=== PATIENT | male | born 1950 | race Caucasian/White ===

== ENCOUNTER 2017-04-05 10:19 | Outpatient (RCR) | payer OTHER, SELFPAY ==
[2017-03-09 11:03] LABS: Absolute Lymphocyte Count 0.61 X10^3/ul (0.83-4.51); Absolute Neutrophil Count 3.8 X10^3/uL (2.0-7.7); Basophil# 0.02 X10^3/uL; Basophil% 0.4 % (0-1); Eosinophil# 0.16 X10^3/uL; Eosinophils% 3.1 % (0-5); Hematocrit 35.3 % (40-54); Hemoglobin 12.1 g/dl (13.0-16.5); Lymphocyte # 0.61 X10^3/ul (4.0); Mean Corp Hgb Conc 34.3 g/gl (32-36); Mean Corpuscular Hgb 30.7 pg (27.0-32.0); Mean Corpuscular Volume 89.6 fL (80-94); Mean Platelet Vol. 10.6 fl (6.2-12.0); Monocyte# 0.45 X10^3/uL; Monocyte% 8.8 % (0-10); Neutrophil # 3.83 X10^3/uL (2.7-7.7); Neutrophil % 75.1 % (47-70); Platelet Count 148 K/mm3 (150-450); RBC Distribution Width CV 15.3 % (11.6-14.6); RBC Distribution Width SD 46.2 fl (35.1-43.9); Red Blood Count 3.94 M/mm3 (4.6-6.2); White Blood Count 5.1 K/mm3 (4.4-11.0)
[2017-03-09 11:11] LABS: POSITIVE COUNT NO; POSITIVE DIFFERENTIAL NO; POSITIVE MORPHOLOGY NO
[2017-03-09 11:35] LABS: ALB/GLOB Ratio 1.2 RATIO (0.9-2.4); AST(SGOT) 15 U/L (15-37); Alanine Aminotransfer ALT/SGPT 25 U/L (12-78); Albumin, Serum 3.7 g/dL (3.4-5.0); Alkaline Phosphatase 69 U/L (45-117); Anion Gap 8 (5-15); BUN 18 mg/dL (7-18); BUN/Creat Ratio 21.5 RATIO (10-20); Calcium,Total 8.5 mg/dL (8.5-10.1); Chloride 102 mmol/L (98-107); Creatinine, Serum 0.84 mg/dL (0.70-1.30); EST Glomerular Filtration Rate 98 mL/min (>60); Est Glom Filt Rate - Afr Amer 119 mL/min (>60); Globulin 3.2 g/dL (2.2-4.2); Glucose 109 mg/dL (70-110); Potassium 3.8 mmol/L (3.5-5.1); Protein, Total 6.9 g/dL (6.4-8.2); Sodium Level 140 mmol/L (136-145)
[2017-03-15 10:22] LABS: Absolute Lymphocyte Count 0.51 X10^3/ul (0.83-4.51); Absolute Neutrophil Count 4.5 X10^3/uL (2.0-7.7); Basophil# 0.02 X10^3/uL; Basophil% 0.4 % (0-1); Eosinophil# 0.16 X10^3/uL; Eosinophils% 2.9 % (0-5); Hematocrit 35.9 % (40-54); Hemoglobin 12.6 g/dl (13.0-16.5); Lymphocyte # 0.51 X10^3/ul (4.0); Lymphocyte % 9.1 % (19-41); Mean Corp Hgb Conc 35.1 g/gl (32-36); Mean Corpuscular Hgb 31.3 pg (27.0-32.0); Mean Corpuscular Volume 89.3 fL (80-94); Mean Platelet Vol. 10.4 fl (6.2-12.0); Monocyte# 0.44 X10^3/uL; Monocyte% 7.9 % (0-10); Neutrophil # 4.46 X10^3/uL (2.7-7.7); Neutrophil % 79.5 % (47-70); Platelet Count 142 K/mm3 (150-450); RBC Distribution Width CV 15.7 % (11.6-14.6); RBC Distribution Width SD 47.5 fl (35.1-43.9); Red Blood Count 4.02 M/mm3 (4.6-6.2); White Blood Count 5.6 K/mm3 (4.4-11.0)
[2017-03-15 10:24] LABS: Differential Indicated SCAN CRITERIA MET; POSITIVE COUNT NO; POSITIVE DIFFERENTIAL YES; POSITIVE MORPHOLOGY NO
[2017-03-15 10:57] LABS: ALB/GLOB Ratio 1.2 RATIO (0.9-2.4); AST(SGOT) 16 U/L (15-37); Alanine Aminotransfer ALT/SGPT 25 U/L (12-78); Albumin, Serum 3.7 g/dL (3.4-5.0); Alkaline Phosphatase 70 U/L (45-117); Anion Gap 6 (5-15); BUN 18 mg/dL (7-18); BUN/Creat Ratio 20.2 RATIO (10-20); Calcium,Total 8.8 mg/dL (8.5-10.1); Chloride 106 mmol/L (98-107); Creatinine, Serum 0.89 mg/dL (0.70-1.30); EST Glomerular Filtration Rate 91 mL/min (>60); Est Glom Filt Rate - Afr Amer 110 mL/min (>60); Globulin 3.2 g/dL (2.2-4.2); Glucose 105 mg/dL (70-110); Protein, Total 6.9 g/dL (6.4-8.2); Sodium Level 141 mmol/L (136-145)
[2017-03-22 11:23] LABS: Absolute Lymphocyte Count 0.34 X10^3/ul (0.83-4.51); Absolute Neutrophil Count 3.9 X10^3/uL (2.0-7.7); Basophil# 0.01 X10^3/uL; Basophil% 0.2 % (0-1); Differential Indicated SCAN CRITERIA MET; Eosinophil# 0.15 X10^3/uL; Hematocrit 35.9 % (40-54); Hemoglobin 12.2 g/dl (13.0-16.5); Lymphocyte # 0.34 X10^3/ul (4.0); Lymphocyte % 6.8 % (19-41); Mean Corpuscular Hgb 30.5 pg (27.0-32.0); Mean Corpuscular Volume 89.8 fL (80-94); Monocyte# 0.59 X10^3/uL; Monocyte% 11.9 % (0-10); Neutrophil # 3.87 X10^3/uL (2.7-7.7); Neutrophil % 77.9 % (47-70); POSITIVE COUNT NO; POSITIVE DIFFERENTIAL YES; POSITIVE MORPHOLOGY NO; Platelet Count 134 K/mm3 (150-450); RBC Distribution Width CV 16.6 % (11.6-14.6); RBC Distribution Width SD 50.1 fl (35.1-43.9)
[2017-03-22 11:57] LABS: ALB/GLOB Ratio 1.2 RATIO (0.9-2.4); AST(SGOT) 18 U/L (15-37); Alanine Aminotransfer ALT/SGPT 28 U/L (12-78); Albumin, Serum 3.8 g/dL (3.4-5.0); Alkaline Phosphatase 69 U/L (45-117); Anion Gap 6 (5-15); BUN 17 mg/dL (7-18); BUN/Creat Ratio 20.3 RATIO (10-20); Calcium,Total 8.7 mg/dL (8.5-10.1); Chloride 106 mmol/L (98-107); Creatinine, Serum 0.84 mg/dL (0.70-1.30); EST Glomerular Filtration Rate 98 mL/min (>60); Est Glom Filt Rate - Afr Amer 118 mL/min (>60); Globulin 3.2 g/dL (2.2-4.2); Glucose 97 mg/dL (70-110); Potassium 3.8 mmol/L (3.5-5.1); Sodium Level 141 mmol/L (136-145)
[2017-03-29 11:06] LABS: Absolute Lymphocyte Count 0.32 X10^3/ul (0.83-4.51); Absolute Neutrophil Count 3.6 X10^3/uL (2.0-7.7); Basophil# 0.01 X10^3/uL; Basophil% 0.2 % (0-1); Eosinophil# 0.22 X10^3/uL; Eosinophils% 4.6 % (0-5); Hematocrit 34.9 % (40-54); Hemoglobin 12.3 g/dl (13.0-16.5); Lymphocyte # 0.32 X10^3/ul (4.0); Lymphocyte % 6.8 % (19-41); Mean Corp Hgb Conc 35.2 g/gl (32-36); Mean Corpuscular Hgb 31.7 pg (27.0-32.0); Mean Corpuscular Volume 89.9 fL (80-94); Mean Platelet Vol. 10.1 fl (6.2-12.0); Monocyte# 0.57 X10^3/uL; Platelet Count 155 K/mm3 (150-450); RBC Distribution Width CV 17.4 % (11.6-14.6); RBC Distribution Width SD 52.8 fl (35.1-43.9); Red Blood Count 3.88 M/mm3 (4.6-6.2); White Blood Count 4.7 K/mm3 (4.4-11.0)
[2017-03-29 11:07] LABS: Differential Indicated SCAN CRITERIA MET; POSITIVE COUNT NO; POSITIVE DIFFERENTIAL YES; POSITIVE MORPHOLOGY NO
[2017-03-29 11:16] LABS: Differential Comment SCANNED
[2017-03-29 11:37] LABS: ALB/GLOB Ratio 1.3 RATIO (0.9-2.4); AST(SGOT) 16 U/L (15-37); Alanine Aminotransfer ALT/SGPT 28 U/L (12-78); Albumin, Serum 3.8 g/dL (3.4-5.0); Alkaline Phosphatase 66 U/L (45-117); Anion Gap 7 (5-15); BUN 14 mg/dL (7-18); BUN/Creat Ratio 15.3 RATIO (10-20); Calcium,Total 8.6 mg/dL (8.5-10.1); Chloride 103 mmol/L (98-107); Creatinine, Serum 0.92 mg/dL (0.70-1.30); EST Glomerular Filtration Rate 88 mL/min (>60); Est Glom Filt Rate - Afr Amer 107 mL/min (>60); Glucose 93 mg/dL (70-110); Protein, Total 6.8 g/dL (6.4-8.2); Sodium Level 140 mmol/L (136-145)
[2017-04-05 13:04] LABS: Absolute Lymphocyte Count 0.35 X10^3/ul (0.83-4.51); Absolute Neutrophil Count 4.1 X10^3/uL (2.0-7.7); Basophil# 0.02 X10^3/uL; Basophil% 0.4 % (0-1); Eosinophil# 0.19 X10^3/uL; Eosinophils% 3.6 % (0-5); Hematocrit 34.8 % (40-54); Hemoglobin 12.2 g/dl (13.0-16.5); Lymphocyte # 0.35 X10^3/ul (4.0); Lymphocyte % 6.7 % (19-41); Mean Corp Hgb Conc 35.1 g/gl (32-36); Mean Corpuscular Hgb 31.9 pg (27.0-32.0); Mean Corpuscular Volume 91.1 fL (80-94); Mean Platelet Vol. 10.9 fl (6.2-12.0); Monocyte# 0.54 X10^3/uL; Monocyte% 10.3 % (0-10); Neutrophil # 4.14 X10^3/uL (2.7-7.7); Neutrophil % 78.8 % (47-70); Platelet Count 160 K/mm3 (150-450); RBC Distribution Width CV 18.3 % (11.6-14.6); RBC Distribution Width SD 56.4 fl (35.1-43.9); Red Blood Count 3.82 M/mm3 (4.6-6.2); White Blood Count 5.3 K/mm3 (4.4-11.0)
[2017-04-05 13:06] LABS: Differential Indicated SCAN CRITERIA MET; POSITIVE COUNT NO; POSITIVE DIFFERENTIAL YES; POSITIVE MORPHOLOGY NO
[2017-04-05 13:28] LABS: ALB/GLOB Ratio 1.3 RATIO (0.9-2.4); AST(SGOT) 17 U/L (15-37); Alanine Aminotransfer ALT/SGPT 28 U/L (16-61); Albumin, Serum 3.7 g/dL (3.2-5.0); Alkaline Phosphatase 62 U/L (45-117); Anion Gap 6 (5-15); BUN 17 mg/dL (7-18); BUN/Creat Ratio 19.9 RATIO (10-20); Calcium,Total 8.6 mg/dL (8.5-10.1); Chloride 104 mmol/L (98-107); Creatinine, Serum 0.86 mg/dL (0.70-1.30); EST Glomerular Filtration Rate 96 mL/min (>60); Est Glom Filt Rate - Afr Amer 116 mL/min (>60); Globulin 2.9 g/dL (2.2-4.2); Glucose 110 mg/dL (70-110); Potassium 3.5 mmol/L (3.5-5.1); Protein, Total 6.6 g/dL (6.4-8.2); Sodium Level 140 mmol/L (136-145)
== END 2017-04-05 10:20 | disposition home or self-care (01) ==
LOC: LAB 10:19
PROVIDERS: Family Provider Family Medicine; PCP Family Medicine
DX: C20 Malignant neoplasm of rectum (principal)
CPT/HCPCS: 36415; 80053; 85025

== ENCOUNTER 2017-05-04 12:40 | Outpatient (RCR) | payer OTHER, SELFPAY ==
[2017-04-12 12:24] LABS: Absolute Lymphocyte Count 0.69 X10^3/ul (0.83-4.51); Absolute Neutrophil Count 3.8 X10^3/uL (2.0-7.7); Basophil# 0.01 X10^3/uL; Basophil% 0.2 % (0-1); Eosinophil# 0.14 X10^3/uL; Eosinophils% 2.9 % (0-5); Hematocrit 36.3 % (40-54); Hemoglobin 12.5 g/dl (13.0-16.5); Lymphocyte # 0.69 X10^3/ul (4.0); Lymphocyte % 14.1 % (19-41); Mean Corp Hgb Conc 34.4 g/gl (32-36); Mean Corpuscular Hgb 31.7 pg (27.0-32.0); Mean Corpuscular Volume 92.1 fL (80-94); Mean Platelet Vol. 10.2 fl (6.2-12.0); Monocyte# 0.28 X10^3/uL; Monocyte% 5.7 % (0-10); Neutrophil # 3.76 X10^3/uL (2.7-7.7); Neutrophil % 76.9 % (47-70); Platelet Count 146 K/mm3 (150-450); RBC Distribution Width CV 19.5 % (11.6-14.6); RBC Distribution Width SD 62.9 fl (35.1-43.9); Red Blood Count 3.94 M/mm3 (4.6-6.2); White Blood Count 4.9 K/mm3 (4.4-11.0)
[2017-04-12 12:31] LABS: POSITIVE COUNT NO; POSITIVE DIFFERENTIAL NO; POSITIVE MORPHOLOGY NO
[2017-04-12 13:00] LABS: ALB/GLOB Ratio 1.3 RATIO (0.9-2.4); AST(SGOT) 17 U/L (15-37); Alanine Aminotransfer ALT/SGPT 27 U/L (16-61); Albumin, Serum 3.8 g/dL (3.2-5.0); Alkaline Phosphatase 67 U/L (45-117); Anion Gap 6 (5-15); BUN 13 mg/dL (7-18); BUN/Creat Ratio 14.4 RATIO (10-20); Calcium,Total 8.9 mg/dL (8.5-10.1); Chloride 106 mmol/L (98-107); EST Glomerular Filtration Rate 90 mL/min (>60); Est Glom Filt Rate - Afr Amer 109 mL/min (>60); Glucose 104 mg/dL (74-106); Potassium 3.7 mmol/L (3.5-5.1); Protein, Total 6.8 g/dL (6.4-8.2); Sodium Level 142 mmol/L (136-145)
[2017-04-26 15:47] LABS: ALB/GLOB Ratio 1.2 RATIO (0.9-2.4); AST(SGOT) 20 U/L (15-37); Alanine Aminotransfer ALT/SGPT 33 U/L (16-61); Albumin, Serum 3.7 g/dL (3.2-5.0); Alkaline Phosphatase 65 U/L (45-117); Anion Gap 7 (5-15); BUN 18 mg/dL (7-18); BUN/Creat Ratio 20.6 RATIO (10-20); Calcium,Total 8.3 mg/dL (8.5-10.1); Chloride 105 mmol/L (98-107); Creatinine, Serum 0.88 mg/dL (0.70-1.30); EST Glomerular Filtration Rate 93 mL/min (>60); Est Glom Filt Rate - Afr Amer 113 mL/min (>60); Glucose 115 mg/dL (74-106); Potassium 3.7 mmol/L (3.5-5.1); Protein, Total 6.7 g/dL (6.4-8.2); Sodium Level 140 mmol/L (136-145)
[2017-04-26 15:52] LABS: Absolute Lymphocyte Count 0.54 X10^3/ul (0.83-4.51); Absolute Neutrophil Count 4.1 X10^3/uL (2.0-7.7); Basophil# 0.01 X10^3/uL; Basophil% 0.2 % (0-1); Eosinophil# 0.18 X10^3/uL; Eosinophils% 3.2 % (0-5); Hematocrit 35.7 % (40-54); Hemoglobin 12.1 g/dl (13.0-16.5); Lymphocyte # 0.54 X10^3/ul (4.0); Lymphocyte % 9.7 % (19-41); Mean Corp Hgb Conc 33.9 g/gl (32-36); Mean Corpuscular Hgb 31.5 pg (27.0-32.0); Mean Platelet Vol. 10.5 fl (6.2-12.0); Monocyte% 12.6 % (0-10); Neutrophil # 4.13 X10^3/uL (2.7-7.7); Neutrophil % 74.1 % (47-70); Platelet Count 140 K/mm3 (150-450); RBC Distribution Width CV 17.7 % (11.6-14.6); RBC Distribution Width SD 60.2 fl (35.1-43.9); Red Blood Count 3.84 M/mm3 (4.6-6.2); White Blood Count 5.6 K/mm3 (4.4-11.0)
[2017-04-26 15:56] LABS: Differential Indicated SCAN CRITERIA MET; POSITIVE COUNT NO; POSITIVE DIFFERENTIAL YES; POSITIVE MORPHOLOGY NO
[2017-04-26 16:19] LABS: Differential Comment SCANNED
[2017-05-04 15:15] LABS: Absolute Lymphocyte Count 0.72 X10^3/ul (0.83-4.51); Absolute Neutrophil Count 3.6 X10^3/uL (2.0-7.7); Basophil# 0.01 X10^3/uL; Basophil% 0.2 % (0-1); Eosinophil# 0.17 X10^3/uL; Eosinophils% 3.5 % (0-5); Hematocrit 36.6 % (40-54); Hemoglobin 12.4 g/dl (13.0-16.5); Lymphocyte # 0.72 X10^3/ul (4.0); Lymphocyte % 14.6 % (19-41); Mean Corp Hgb Conc 33.9 g/gl (32-36); Mean Corpuscular Hgb 31.7 pg (27.0-32.0); Mean Corpuscular Volume 93.6 fL (80-94); Mean Platelet Vol. 10.8 fl (6.2-12.0); Monocyte% 8.1 % (0-10); Neutrophil # 3.61 X10^3/uL (2.7-7.7); Neutrophil % 73.4 % (47-70); Platelet Count 176 K/mm3 (150-450); RBC Distribution Width CV 16.8 % (11.6-14.6); RBC Distribution Width SD 57.9 fl (35.1-43.9); Red Blood Count 3.91 M/mm3 (4.6-6.2); White Blood Count 4.9 K/mm3 (4.4-11.0)
[2017-05-04 15:20] LABS: POSITIVE COUNT NO; POSITIVE DIFFERENTIAL NO; POSITIVE MORPHOLOGY NO
[2017-05-04 15:38] LABS: ALB/GLOB Ratio 1.2 RATIO (0.9-2.4); AST(SGOT) 20 U/L (15-37); Alanine Aminotransfer ALT/SGPT 29 U/L (16-61); Albumin, Serum 3.9 g/dL (3.2-5.0); Alkaline Phosphatase 69 U/L (45-117); Anion Gap 8 (5-15); BUN 12 mg/dL (7-18); BUN/Creat Ratio 14.9 RATIO (10-20); Calcium,Total 8.7 mg/dL (8.5-10.1); Chloride 104 mmol/L (98-107); Creatinine, Serum 0.81 mg/dL (0.70-1.30); EST Glomerular Filtration Rate 102 mL/min (>60); Est Glom Filt Rate - Afr Amer 124 mL/min (>60); Globulin 3.2 g/dL (2.2-4.2); Glucose 95 mg/dL (74-106); Potassium 3.5 mmol/L (3.5-5.1); Protein, Total 7.1 g/dL (6.4-8.2); Sodium Level 142 mmol/L (136-145)
== END 2017-05-04 13:00 ==
LOC: LAB 12:40
PROVIDERS: Family Provider Family Medicine; PCP Family Medicine
DX: C20 Malignant neoplasm of rectum (principal)
CPT/HCPCS: 36415; 80053; 85025

== ENCOUNTER 2017-05-24 14:26 | Outpatient (RCR) | payer OTHER, SELFPAY ==
[2017-05-24 15:31] LABS: Absolute Lymphocyte Count 0.79 X10^3/ul (0.83-4.51); Absolute Neutrophil Count 4.9 X10^3/uL (2.0-7.7); Basophil# 0.02 X10^3/uL; Basophil% 0.3 % (0-1); Eosinophil# 0.14 X10^3/uL; Eosinophils% 2.2 % (0-5); Hematocrit 37.4 % (40-54); Hemoglobin 12.9 g/dl (13.0-16.5); Lymphocyte # 0.79 X10^3/ul (4.0); Lymphocyte % 12.3 % (19-41); Mean Corp Hgb Conc 34.5 g/gl (32-36); Mean Corpuscular Hgb 32.3 pg (27.0-32.0); Mean Corpuscular Volume 93.5 fL (80-94); Mean Platelet Vol. 11.2 fl (6.2-12.0); Monocyte# 0.59 X10^3/uL; Monocyte% 9.2 % (0-10); Neutrophil # 4.87 X10^3/uL (2.7-7.7); Neutrophil % 75.7 % (47-70); Platelet Count 163 K/mm3 (150-450); RBC Distribution Width CV 14.2 % (11.6-14.6); RBC Distribution Width SD 47.2 fl (35.1-43.9); White Blood Count 6.4 K/mm3 (4.4-11.0)
[2017-05-24 15:34] LABS: POSITIVE COUNT NO; POSITIVE DIFFERENTIAL NO; POSITIVE MORPHOLOGY NO
[2017-05-24 16:16] LABS: BUN 15 mg/dL (7-18); Creatinine, Serum 0.82 mg/dL (0.70-1.30); EST Glomerular Filtration Rate 101 mL/min (>60); Glucose 82 mg/dL (74-106)
[2017-05-24 16:17] LABS: ALB/GLOB Ratio 1.3 RATIO (0.9-2.4); AST(SGOT) 17 U/L (15-37); Alanine Aminotransfer ALT/SGPT 29 U/L (16-61); Albumin, Serum 4.1 g/dL (3.2-5.0); Alkaline Phosphatase 69 U/L (45-117); Anion Gap 7 (5-15); BUN/Creat Ratio 18.4 RATIO (10-20); Calcium,Total 8.4 mg/dL (8.5-10.1); Chloride 107 mmol/L (98-107); Est Glom Filt Rate - Afr Amer 122 mL/min (>60); Globulin 3.2 g/dL (2.2-4.2); Potassium 3.8 mmol/L (3.5-5.1); Protein, Total 7.3 g/dL (6.4-8.2); Sodium Level 143 mmol/L (136-145)
== END 2017-05-24 15:00 | disposition home or self-care (01) ==
LOC: LAB 14:26
PROVIDERS: Family Provider Family Medicine; PCP Family Medicine
DX: C20 Malignant neoplasm of rectum (principal)
CPT/HCPCS: 36415; 80053; 85025

== ENCOUNTER → 2019-09-26 | Outpatient (CLI) | payer OTHER, SELFPAY ==
[2019-06-27 14:59] VITALS: BMI 23.6
[2019-09-26 07:24] LABS: Absolute Lymphocyte Count 1.08 X10^3/uL (0.83-4.51); Absolute Neutrophil Count 2.9 X10^3/uL (2.0-7.7); Basophil# 0.02 X10^3/uL; Basophil% 0.4 % (0-1); Eosinophil# 0.23 X10^3/uL; Eosinophils% 4.9 % (0-5); Hemoglobin 13.1 g/dL (13.0-16.5); Lymphocyte # 1.08 X10^3/ul (4.0); Lymphocyte % 22.9 % (19-41); Mean Corp Hgb Conc 34.5 g/dL (32-36); Mean Corpuscular Hgb 31.3 pg (27.0-32.0); Mean Corpuscular Volume 90.9 fL (80-94); Monocyte# 0.51 X10^3/uL; Monocyte% 10.8 % (0-10); NRBC Flagged by Analyzer 0 % (0-5); Neutrophil # 2.87 X10^3/uL (2.7-7.7); Neutrophil % 60.8 % (47-70); Platelet Count 153 K/mm3 (150-450); RBC Distribution Width CV 13.4 % (11.6-14.6); RBC Distribution Width SD 44.5 fl (35.1-43.9); Red Blood Count 4.18 M/mm3 (4.6-6.2); White Blood Count 4.7 K/mm3 (4.4-11.0)
[2019-09-26 07:48] LABS: ALB/GLOB Ratio 1.4 RATIO (0.9-2.4); AST(SGOT) 18 U/L (15-37); Alanine Aminotransfer ALT/SGPT 24 U/L (16-61); Albumin, Serum 4.2 g/dL (3.2-5.0); Alkaline Phosphatase 66 U/L (45-117); Anion Gap 4 (5-15); BUN 17 mg/dL (7-18); BUN/Creat Ratio 18.6 RATIO (10-20); Calcium,Total 8.5 mg/dL (8.5-10.1); Chloride 104 mmol/L (98-107); Creatinine, Serum 0.92 mg/dL (0.70-1.30); EST Glomerular Filtration Rate 88 mL/min (>60); Est Glom Filt Rate - Afr Amer 106 mL/min (>60); Globulin 2.9 g/dL (2.2-4.2); Glucose 96 mg/dL (74-106); Potassium 3.6 mmol/L (3.5-5.1); Protein, Total 7.1 g/dL (6.4-8.2); Sodium Level 138 mmol/L (136-145)
[2019-09-27 15:49] LABS: Carcinoembryonic Antigen 1.8 ng/mL (0.0-4.7)
== END | disposition home or self-care (01) ==
LOC: LAB 06:36
PROVIDERS: PCP Family Medicine
DX: C20 Malignant neoplasm of rectum (principal)
CPT/HCPCS: 36415; 80053; 82378; 85025

== ENCOUNTER 2021-08-04 05:26 | Day surgery (SDC) | payer OTHER, SELFPAY ==
[2021-08-04] VITALS (11 sets, daily range): BP systolic 107–153; BP diastolic 61–82; PULSE 73–108; RESP 14–18; TEMP 36.2–36.5; O2SAT 99–100; BMI 21.7
--- NOTE | 2021-08-04 06:10 | PCM.HP.STD ---
HPI - General HPI Narrative INDIA WILD, is a 70 M who presents for surveillance colonoscopy. He presents via open access. 2016 he had rectal cancer and was treated by Dr. Beto Miner at the [facility]. Most recent colonoscopy and that I was able to view was August 2018. On March 03, 2021 he had a flexible sigmoidoscopy per Dr. Beto Miner. January 02, 2021 the patient's CEA level was 1.7. He otherwise has been feeling well. No abdominal pain. No bright red blood per rectum or melena. His ability to accomplish tasks of daily life are good. He is not noticed any decrease in ability. [facility] Medical History (Updated 08/04/21 @ 06:[address] India Benton MD) Cancer chemo/radiation for hx of colorectal cancer History of flexible sigmoidoscopy Neuropathy Rectal cancer Wears glasses Home Medications multivitamin,tx-minerals 1 tab PO DAILY 07/10/21 [History Last Taken Unknown] ascorbic acid (vitamin C) [Vitamin C] 250 mg PO BID 07/29/21 [History Last Taken Unknown] Allergy/AdvReac Type Severity Reaction Status Date / Time No Known Allergies Allergy Verified 07/29/21 11:46 Family History Other Heart disease Surgical History (Updated 07/29/21 @ 11:51 by Hailey Brice) History of back surgery History of colon surgery History of colonoscopy Hx of hand surgery Hx of tonsillectomy Social History Smoking Status: Never smoker alcohol intake: never ROS Constitutional Constitutional: Reports systems reviewed and no addt'l complaints, except as documented Cardiovascular Cardiovascular: Denies chest pain Respiratory/Chest Respiratory/Chest: Denies shortness of breath at rest Gastrointestinal Gastrointestinal: Denies abdominal pain, change in bowel habits, hematochezia or melena Physical Exam Const alert, oriented x3 and no apparent distress General Appearance: cooperative and comfortable Eyes General Eye: normal appearance of both eyes Neck General: normal visual inspection Chest inspection of chest normal Resp Effort and Inspection: able to speak in complete sentences and symmetric chest movement Auscultation: clear to auscultation bilaterally Cardio regular rate and regular rhythm GI soft to palpation, non-tender and non-distended Extremity no calf tenderness Neuro oriented x3 Psych thought process normal Assessment & Plan Assessment/Plan (1) History of rectal cancer: PLAN: 70-year-old gentleman with a personal history of rectal cancer treated with neoadjuvant chemoradiation followed by low anterior resection performed by Dr. Beto Miner. He presents now for colonoscopy with possible biopsy or polypectomy as indicated. He presents via open access. His most recent endoscopic evaluation was a flexible sigmoidoscopy on March 03, 2021. He has had an opportunity to ask and have questions answered. We will proceed as noted. India Benton M.D., F.A.C.S.
[2021-08-04] MEDS: Lactated Ringers 1,000 ML 15 ML IV (06:26)
[2021-08-04] MEDS: Lactated Ringers 500 ML 999 ML IV (06:28)
[2021-08-04] MEDS: Midazolam 5 MG/ML Syringe (06:31)
--- NOTE | 2021-08-04 06:51 | OP.COLON_ITS ---
Patient Name: Lalito Mcclendon Procedure Date: 08/04/2021 6:22 AM Date of : 1950 Age: 70 Procedure: Colonoscopy Indications: High risk colon cancer surveillance: Personal history of colon cancer Providers: Lalito Benton MD Medicines: Midazolam 2.5 mg IV, Meperidine 75 mg IV Patient Profile: Last Colonoscopy: August 2018. Complications: No immediate complications. Procedure: Pre-Anesthesia Assessment: - Prior to the procedure, a History and Physical was performed, and patient medications and allergies were reviewed. The patient's tolerance of previous anesthesia was also reviewed. The risks and benefits of the procedure and the sedation options and risks were discussed with the patient. All questions were answered, and informed consent was obtained. Prior Anticoagulants: The patient has taken no previous anticoagulant or antiplatelet agents. ASA Grade Assessment: II - A patient with mild systemic disease. After reviewing the risks and benefits, the patient was deemed in satisfactory condition to undergo the procedure. After I obtained informed consent, the scope was passed under direct vision. Throughout the procedure, the patient's blood pressure, pulse, and oxygen saturations were monitored continuously. The Colonoscope was introduced through the anus and advanced to the cecum, identified by appendiceal orifice and ileocecal valve. The colonoscopy was performed without difficulty. The patient tolerated the procedure well. The quality of the bowel preparation was good. The ileocecal valve and the appendiceal orifice were photographed. Moderate Sedation: Moderate (conscious) sedation was personally administered by the endoscopist. The following parameters were monitored: oxygen saturation, heart rate, blood pressure, and response to care. Total physician intraservice time was 15 minutes. Scope In: 6:33:25 AM Scope Withdrawal Time 0 hours 8 minutes 3 seconds Scope Out: 6:45:13 AM Total Procedure Duration Time 0 hours 11 minutes 48 seconds Findings: The digital rectal exam findings include rectal stricture. There was evidence of a prior end-to-end colo-rectal anastomosis in the distal rectum. This was patent and was characterized by mild stenosis. The exam was otherwise without abnormality. Impression: - Rectal stricture found on digital rectal exam. Induration, Surgical/radiation changes. No mucosal lesions. - Patent end-to-end colo-rectal anastomosis, characterized by mild stenosis. - The examination was otherwise normal. - No specimens collected. Recommendation: - Discharge patient to home. - Resume previous diet. - Continue present medications. - Repeat colonoscopy in 3 years for surveillance. Procedure Code(s): --- Professional --- 20156, Colonoscopy, flexible; diagnostic, including collection of specimen(s) by brushing or washing, when performed (separate procedure) 84972, 59, Moderate sedation services provided by the same physician or other qualified health home care administrator performing the diagnostic or therapeutic service that the sedation supports, requiring the presence of an independent trained observer to assist in the monitoring of the patient's level of consciousness and physiological status; initial 15 minutes of intraservice time, patient age 5 years or older Diagnosis Code(s): --- Professional --- Z85.038, Personal history of other malignant neoplasm of large intestine K62.4, Stenosis of anus and rectum Z98.0, Intestinal bypass and anastomosis status CPT copyright 2017 [employer]. All rights reserved. The codes documented in this report are preliminary and upon moshgiach review may be revised to meet current compliance requirements. Lalito Benton MD 08/04/2021 6:51:20 AM This report has been signed electronically. Number of Addenda: 0 Note Initiated On: 08/04/2021 6:22 AM
--- NOTE | 2021-08-04 06:52 | OP.CCLET_ITS ---
08/04/2021 Beto Miner [facility] Colorectal surgery Re : Colonoscopy procedure for Lalito Hakan Dear Dr. Miner This procedure was performed on Wednesday, August 04, 2021. My impressions and recommendations are as follows: Impressions : - Rectal stricture found on digital rectal exam. Induration, Surgical/radiation changes. No mucosal lesions. - Patent end-to-end colo-rectal anastomosis, characterized by mild stenosis. - The examination was otherwise normal. - No specimens collected. Recommendations : - Discharge patient to home. - Resume previous diet. - Continue present medications. - Repeat colonoscopy in 3 years for surveillance. My findings are described in the full procedure note, which is enclosed. If I can be of further assistance, please feel free to contact me at Doctor phone number(s): Work: . Sincerely, Lalito Benton MD 08/04/2021 6:51:20 AM This report has been signed electronically.
== END 2021-08-04 07:45 | disposition home or self-care (01) ==
LOC: EN 05:27 → AC 05:28
PROVIDERS: PCP Family Medicine; Referring Provider Family Medicine; Visit Provider Surgery
PROC: 0DJD8ZZ Inspection of Lower Intestinal Tract, Via Natural or Artificial Opening Endoscopic (ICD-10-PCS; CPT 45378; principal; 2021-08-04 06:25)
DX: K62.4 Stenosis of anus and rectum (principal); Z85.048 Personal history of other malignant neoplasm of rectum, rectosigmoid junction, and anus; Z92.21 Personal history of antineoplastic chemotherapy; Z92.3 Personal history of irradiation; Z98.0 Intestinal bypass and anastomosis status; Z90.49 Acquired absence of other specified parts of digestive tract
CPT/HCPCS: 45378; 99152; 99153; J7120

== ENCOUNTER 2021-10-19 08:22 | Outpatient (CLI) | payer OTHER, SELFPAY ==
[2021-10-19 09:29] LABS: Platelet Count 169 K/mm3 (150-450); RET-HE 34.3 pg (30-35)
[2021-10-19 10:00] LABS: Vitamin B12 1409 pg/mL (211-911)
[2021-10-19 10:40] LABS: Ferritin 99 ng/mL (26-388); Iron 83 ug/dL (65-175); Iron Binding Capacity,Total 370 ug/dL (250-450); PSA,Total - Annual Screen 3.51 ng/mL (0.00-4.00)
== END 2021-10-19 23:59 | disposition home or self-care (01) ==
LOC: LAB 08:23
PROVIDERS: PCP Family Medicine; Visit Provider Family Medicine
DX: D64.9 Anemia, unspecified (principal); Z12.5 Encounter for screening for malignant neoplasm of prostate
CPT/HCPCS: 36415; 82607; 82728; 82746; 83540; 83550; 84153; 85045; G0103

== ENCOUNTER → 2022-04-29 | Outpatient (CLI) | payer OTHER, SELFPAY ==
--- NOTE | 2022-04-29 12:04 | CT_ITS ---
STUDY: CT CHEST WITH CONTRAST REASON FOR EXAM: Male, 71 years old. LUNG NODULE RADIATION DOSAGE (If Supplied By Facility): CTDIvol = ( 7.98 ) mGy, DLP = ( 254.22 ) mGycm TECHNIQUE: Transaxial imaging was performed following intravenous administration of IV 100mL Isovue-300. Multiplanar coronal and sagittal images were reformatted. Individualized dose optimization techniques were used for this CT. COMPARISON: Comparison is made with prior outside examination dated 12/28/2021 and 02/01/2017. FINDINGS: CHEST Stable small benign-appearing bilateral axillary lymph nodes. Stable scarring in the lung apices. Stable mild scarring along the medial aspect of the right middle lobe. There is no demonstrated pleural abnormality. Normal heart and pericardium. Normal mediastinum. Normal hilar regions. Normal unenhanced pulmonary arteries. Normal aorta arch and descending thoracic aorta. There are mild degenerative changes of the thoracic spine. Fatty infiltration of the liver. Multiple small gallstones. CT/Chest WITH Contrast IMPRESSION: Stable examination. Electronically Signed: Boone Pantoja MD at 13:57 EST ,
[2022-04-30 08:12] LABS: EGFR FINGERSTICK > 60 mL/min (>60)
== END | disposition home or self-care (01) ==
LOC: CT 12:02
PROVIDERS: PCP Family Medicine
DX: R91.8 Other nonspecific abnormal finding of lung field (principal)
CPT/HCPCS: 71260; Q9967

== ENCOUNTER → 2023-10-26 | Outpatient (CLI) | payer OTHER, SELFPAY ==
[2023-10-26 08:13] LABS: PSA,Total - Annual Screen 2.72 ng/mL (0.00-4.00)
[2023-10-26 11:00] LABS: Hematocrit 29.7 % (40-54); Mean Corp Hgb Conc 33.7 g/dL (32-36); Mean Corpuscular Hgb 33.7 pg (27.0-32.0); Mean Platelet Vol. 10.5 fl (6.2-12.0); POSITIVE COUNT YES; POSITIVE DIFFERENTIAL YES; POSITIVE MORPHOLOGY YES; Platelet Count 115 K/mm3 (150-450); RBC Distribution Width CV 18.9 % (11.6-14.6); RBC Distribution Width SD 66.5 fl (35.1-43.9); Red Blood Count 2.97 M/mm3 (4.6-6.2); White Blood Count 13.9 K/mm3 (4.4-11.0)
[2023-10-26 11:30] LABS: Differential Indicated MANUAL DIFF
[2023-10-26 11:43] LABS: Blast 6 % (0-0); Eosinophil 1 % (0-5); Lymphocyte 26 % (19-41); Metamyelocyte 3 % (0-1); Monocyte 12 % (0-10); Myelocyte 12 % (0-0); Neutrophil-Segmented 40 % (47-70); Total Cells Counted 100 (MANUAL DIFF)
[2023-10-26 11:44] LABS: Polychromasia 1+; Reactive Lymphocyte 2+
[2023-10-26 11:45] LABS: Anisocytosis 1+
[2023-10-26 11:46] LABS: Platelet Morphology LARGE
[2023-10-26 11:48] LABS: Absolute Neutrophil Count 5.6 X10^3/uL (2.0-7.7)
[2023-10-27 13:07] LABS: Pathologist Review Reviewed
== END | disposition home or self-care (01) ==
LOC: LAB 07:28
PROVIDERS: PCP Family Medicine; Referring Provider Family Medicine; Visit Provider Family Medicine
DX: Z12.5 Encounter for screening for malignant neoplasm of prostate (principal)
CPT/HCPCS: 36415; 84153; 85025; G0103

== ENCOUNTER 2023-12-07 08:20 | Outpatient (CLI) | payer OTHER, SELFPAY ==
[2023-12-07 08:34] VITALS: BP 142/63; PULSE 85; RESP 16; TEMP 36.2; O2SAT 97; BMI 23.1
[2023-12-07] MEDS: 0.9% NaCl VAD Flush IV (08:55)
[2023-12-07] MEDS: 0.9% Normal Saline (500mL Bag) 500 ML 15 ML IV (08:56)
[2023-12-07 09:38] VITALS: BP 144/63; PULSE 80; RESP 16; TEMP 36.3; O2SAT 97
[2023-12-07 10:38] VITALS: BP 131/56; PULSE 79; RESP 16; TEMP 36.4
[2023-12-07 11:17] VITALS: BP 134/61; PULSE 82; RESP 16
== END 2023-12-07 23:59 | disposition home or self-care (01) ==
LOC: MEDOUTP 08:20
PROVIDERS: PCP Family Medicine; Referring Provider Internal Medicine Hematology & Oncology; Visit Provider Internal Medicine Hematology & Oncology
DX: C91.00 Acute lymphoblastic leukemia not having achieved remission (principal)
CPT/HCPCS: 36430; 86850; 86900; 86901; 86920; 86922; J7040; P9040; A4216

== ENCOUNTER 2024-01-08 22:03 | Emergency (ER) | payer OTHER, SELFPAY ==
[2024-01-08 22:04] VITALS: BP 152/78; PULSE 87; RESP 19; TEMP 36.7; O2SAT 97; BMI 24.2
--- NOTE | 2024-01-08 22:24 | CT_ITS ---
We are attempting to reach an attending provider to discuss findings. An addendum with communication details will be sent when the communication is complete. EXAM: CT HEAD WITHOUT INTRAVENOUS CONTRAST CLINICAL INDICATION: head ct TECHNIQUE: Multiple axial images were obtained of the head without intravenous contrast. This CT exam was performed using one or more of the following dose reduction techniques: automated exposure control, adjustment of the mA and/or kV according to patient size, and/or use of iterative reconstruction technique. RADIATION DOSE: Total DLP: 812.98 mGy-cm. COMPARISON: No relevant prior studies available. FINDINGS: BRAIN AND EXTRA-AXIAL SPACES: A crescent of extra-axial fluid overlies the left cerebral convexity, indicating a subdural hematoma which measures up to 14 mm in maximal thickness. Majority of this subdural fluid is hypodense/chronic but there is a minimal amount of acute/hypodensity blood within this subdural fluid collection, as well. There is 2 mm of associated yele-pe-cegnb midline shift. An additional subtle crescent of low density/chronic subdural blood overlies the right occipital and frontal cortex indicating a smaller chronic right-sided subdural hematoma which measures up to 5 mm in thickness as measured on coronal image 69 of series 601; this chronic right-sided subdural hematoma extends into the right parafalcine region. The ventricles are slitlike. There is no ventriculomegaly or intraventricular hemorrhage. No parenchymal hemorrhage is noted. Ambient cistern and fourth ventricle are preserved. Cerebellar tonsils are normally positioned. No evidence of acute infarct. There is preservation of the long/white matter interface. No significant parenchymal atrophy is demonstrated. BONES/JOINTS: Unremarkable. No discrete lytic or blastic abnormalities. No linear or depressed skull fracture. SINUSES: Unremarkable as visualized. Clear. MASTOID AIR CELLS: Unremarkable. Clear. ORBITS: Visualized globes, extraocular muscles, optic nerves and retrobulbar fat appear unremarkable. CT/Brain/Head without Contrast IMPRESSION: 1. Acute on chronic though, primarily chronic, subdural hematoma overlying the left cerebral convexity, containing a minimal amount of acute subdural blood. Small chronic right-sided subdural hematoma. 2. 2 mm of associated vhob-sv-casac midline shift. Nonstandard communication protocol initiated. Electronically Signed: Sushil Jones MD at 23:50 EST ,
[2024-01-08] MEDS: dexAMETHasone 10 MG/ML Vial IV (22:35)
[2024-01-08] MEDS: Ondansetron 4 MG/2 ML Vial IV (22:35)
[2024-01-08] MEDS: Morphine 4 MG/ML Syringe IV (22:35)
[2024-01-08] MEDS: 0.9% Normal Saline (1000mL) 1,000 ML 999 ML IV ×2 (22:37→23:49)
[2024-01-08 22:40] LABS: Absolute Lymphocyte Count 1.27 X10^3/uL (0.83-4.51); Basophil# 0.06 X10^3/uL; Basophil% 0.6 % (0-1); Eosinophil# 0.09 X10^3/uL; Eosinophils% 0.9 % (0-5); Hematocrit 29.4 % (40-54); Hemoglobin 9.9 g/dL (13.0-16.5); Lymphocyte # 1.27 X10^3/ul (0.83-4.51); Lymphocyte % 12.7 % (19-41); Mean Corp Hgb Conc 33.7 g/dL (32-36); Mean Corpuscular Hgb 35.7 pg (27.0-32.0); Mean Corpuscular Volume 106.1 fL (80-94); Monocyte# 0.46 X10^3/uL; Monocyte% 4.6 % (0-10); NRBC Flagged by Analyzer 0 % (0-5); Neutrophil # 7.95 X10^3/uL (2.7-7.7); Neutrophil % 79.6 % (47-70); POSITIVE MORPHOLOGY YES; Platelet Count 182 K/mm3 (150-450); RBC Distribution Width CV 17.1 % (11.6-14.6); RBC Distribution Width SD 66.7 fl (35.1-43.9); Red Blood Count 2.77 M/mm3 (4.6-6.2)
[2024-01-08 22:48] LABS: Differential Indicated SCAN CRITERIA MET
[2024-01-08 22:56] LABS: Anion Gap 7 (5-15); BUN 13 mg/dL (7-18); BUN/Creat Ratio 15.6 RATIO (10-20); Calcium,Total 8.8 mg/dL (8.5-10.1); Chloride 108 mmol/L (98-107); Creatinine, Serum 0.84 mg/dL (0.70-1.30); EST Glomerular Filtration Rate 96 mL/min (>60); Est Glom Filt Rate - Afr Amer 116 mL/min (>60); Estimated Creatinine Clearance 80.66 ml/min; Glucose 132 mg/dL (74-106); Potassium 3.6 mmol/L (3.5-5.1); Sodium Level 140 mmol/L (136-145)
[2024-01-08 23:04] LABS: Anisocytosis 1+; Differential Comment SCANNED; Polychromasia RARE
[2024-01-08 23:05] LABS: Erythrocyte Sedimentation Rate 23 mm/hr (0-20); Hypochromasia 1+; Procalcitonin 0.04 ng/mL (0.00-0.09); Target Cells RARE
[2024-01-08 23:06] VITALS: BP 156/72; PULSE 86; RESP 18; TEMP 36.7; O2SAT 93
[2024-01-08 23:22] VITALS: PULSE 85; RESP 18; O2SAT 91
[2024-01-08 23:30] VITALS: PULSE 90; RESP 15
--- NOTE | 2024-01-08 23:43 | EX.ED.DYSGE1 ---
HPI History of Present Illness Chief Complaint: Headache Informant: patient and spouse/S.O. Narrative Narrative: Patient is a 73-year-old male with past medical history of colon cancer. He states that he was treated for this and was informed he was cured a few years ago. He states he has been diligent with his follow-ups and his scans and scopes have not shown any repeat cancer findings. However recently he had blood work obtained which showed a large amount of blast cells and further investigation revealed leukemia. Secondary to that he has been on Sprycel and high-dose steroid. He also has undergone 4 intrathecal methotrexate injections. He states his last injection was Tuesday. He states he has had headaches following the injections in the past but they resolved with hydration and steroids. He states that he noticed a headache today around 9 or 10 in the morning while at work. He states he was able to take Tylenol and the headache reduced from a value of a 7 to a value of a 2. He reports that however after finishing work and returning home the headache worsened and despite taking more izak-neg-pngqthy medications there was no improvement. He states there is been no fevers and chills and he denies any trauma. He denies any photophobia or phonophobia or any known sick contact. However as his headache is worsening and not responding to tncn-imt-delzabq medications he presents for evaluation [facility] Medical History Wears glasses History of flexible sigmoidoscopy Neuropathy Rectal cancer chemo/radiation for hx of colorectal cancer Cancer Home Medications ?Medication ?Instructions ?Recorded ?Last Taken ?Type multivitamin,tx-minerals 1 tab PO DAILY 07/10/21 Unknown History ascorbic acid (vitamin C) 250 mg 250 mg PO BID 07/29/21 Unknown History tablet (Vitamin C) acyclovir 400 mg tablet 400 mg PO BID 12/07/23 Unknown History dasatinib 100 mg tablet (Sprycel) 100 mg PO DAILY 12/07/23 Unknown History famotidine 20 mg tablet 20 mg PO DAILY 01/09/24 Unknown History mirtazapine 7.5 mg tablet 7.5 mg PO DAILY 01/09/24 Unknown History Allergy/AdvReac Type Severity Reaction Status Date / Time No Known Allergies Allergy Verified 12/07/23 08:29 Family History Other Heart disease Surgical History History of colon surgery History of back surgery Hx of hand surgery Hx of tonsillectomy History of colonoscopy Social History Smoking Status: Never smoker alcohol intake: never ROS ROS ED Constitutional Constitutional ED: Denies chills or fever(s) Eyes Eyes: Reports other Details: Negative photophobia ; Denies change in vision ENT ENT ED: Denies rhinorrhea or sore throat Cardiovascular Cardiovascular: Denies chest pain Respiratory/Chest Respiratory/Chest: Denies cough or dyspnea Gastrointestinal Gastrointestinal: Reports nausea; Denies abdominal pain, diarrhea or vomiting Genitourinary Genitourinary ED: Denies dysuria Musculoskeletal Musculoskeletal: Denies myalgias or neck pain Integumentary Denies rash Neurologic Neurologic: Reports headache(s); Denies paresthesias or weakness Hematologic/Lymphatic Hematologic/Lymphatic: Denies easy bleeding or easy bruising EXAM Physical Exam Const Vital Signs: 01/08/24 22:04 01/08/24 23:06 01/08/24 23:22 Temperature 98.1 F 98.1 F Temperature Source Temporal Temporal Pulse Rate 87 86 85 Respiratory Rate 19 H 18 18 Blood Pressure 152/78 H 156/72 H Blood Pressure Mean 102 100 Pulse Ox 97 93 91 Oxygen Delivery Method Room Air Room Air Oxygen Flow Rate (L/min) 01/08/24 23:30 01/09/24 00:03 01/09/24 00:19 Temperature Temperature Source Pulse Rate 90 71 88 Respiratory Rate 15 16 16 Blood Pressure 156/72 H 135/86 H Blood Pressure Mean 100 102 Pulse Ox 98 85 Oxygen Delivery Method Room Air Room Air Oxygen Flow Rate (L/min) 01/09/24 00:20 01/09/24 00:21 01/09/24 00:30 Temperature Temperature Source Pulse Rate 92 83 Respiratory Rate 20 H 18 19 H Blood Pressure 130/66 H Blood Pressure Mean 84 Pulse Ox 90 89 93 Oxygen Delivery Method Nasal Cannula Oxygen Flow Rate (L/min) 2 01/09/24 00:45 01/09/24 01:00 01/09/24 01:15 Temperature Temperature Source Pulse Rate 95 Respiratory Rate 21 H Blood Pressure 129/64 H Blood Pressure Mean 83 Pulse Ox 94 87 93 Oxygen Delivery Method Room Air Oxygen Flow Rate (L/min) 01/09/24 01:30 01/09/24 01:32 01/09/24 01:45 Temperature 98.1 F Temperature Source Pulse Rate 98 Respiratory Rate 19 H Blood Pressure 132/35 H 129/64 H Blood Pressure Mean 63 85 Pulse Ox 90 93 Oxygen Delivery Method Room Air Oxygen Flow Rate (L/min) 01/09/24 02:00 Temperature Temperature Source Pulse Rate 91 Respiratory Rate 18 Blood Pressure 132/74 H Blood Pressure Mean 92 Pulse Ox 93 Oxygen Delivery Method Room Air Oxygen Flow Rate (L/min) Positive well nourished and well developed General Appearance ED: well developed; Negative for pallor HEENT HEENT Narrative: Normocephalic atraumatic Eyes PERRL and EOMs intact bilaterally General Eye ED: Negative for scleral icterus Neck supple Neck Narrative: No nuchal rigidity or meningeal signs Resp normal respiratory effort and clear to auscultation bilaterally Cardio regular rate and regular rhythm Back/Spine Back/Spine Narrative: No bony deformity or step-off of the thoracic or lumbar spine no midline tenderness to palpation No soft tissue changes along the lower lumbar region to suggest infectious process with his recent methotrexate injection Extremity normal to inspection Neuro oriented x3, CN's II-XII intact bilaterally and no sensory deficits noted Neuro Narrative: GCS of 15 Cranial nerves II through XII are grossly intact there are no focal neurologic deficits No pronator drift no dysmetria no truncal ataxia NIH stroke scale score of 0 Sensorium / Orientation: alert Motor Exam: strength 5/5 throughout Psych mental status grossly normal Skin no rashes or lesions noted and no wounds General Skin Exam: Negative for jaundice or pallor MDM MDM MDM Narrative Medical decision making narrative: Patient arrived to the ER slightly hypertensive but otherwise with stable vitals. He reported that he has been having headaches after his methotrexate injections and with the addition of his Sprycel but that these were improving with time and hydration and IV steroids following the injections. However this morning at work the headache returned and he states was different than the previous. With his history of lumbar puncture it was felt that the headache was most likely related to epidural leak but as he is technically immunosuppressed there is also concern for infectious process or this could be medication side effect as 40% of Sprycel patients will report headache. There is also concern that it could be related to a spontaneous subarachnoid or subdural bleed. Secondary to his basic labs were obtained as well as a noncontrast head CT. The patient's labs revealed no clinically significant finding. His hemoglobin is low at 9.9 but chart review reveals this is at his baseline and chronic in nature. Otherwise there is no obvious signs of infection. As it was felt his headache was related to epidural leak he was given IV hydration caffeine and Decadron. He only had mild improvement and therefore Toradol Benadryl Reglan and valproic acid were added. Patient was still not having symptom improvement and head CT was obtained. Head CT revealed an acute on chronic subdural hemorrhage. The patient's GCS is 15 he has an NIH stroke scale score of 0. With the patient's acute on chronic subdural bleed we do not have neurosurgery or neurology at this facility and as he sees hematology/oncology at [facility] because of his leukemia he did request transfer to their facility. Therefore the transfer line was contacted and the case was discussed with Dr. Alejandra. He does agree to accept the patient at this time and recommends auto launch for air transport. He recommends head of the bed be kept at 30 degrees and the patient's blood pressure remained under 160 systolically. After receiving his last round of medications his blood pressure had reduced to 130/80 approximately and his neurologic exam has remained normal. Therefore at this time he is safe for transfer to their facility for continued monitoring of his acute on chronic subarachnoid hemorrhage History & Record Review Discussion w/independent historian: Patient and Significant other Lab Data Attestation: I reviewed the patient's lab results. Labs: Laboratory Results - last 24 hr 01/08/24 22:17 WBC 10.0 RBC 2.77 L Hgb 9.9 L Hct 29.4 L MCV 106.1 H MCH 35.7 H MCHC 33.7 RDW Std Deviation 66.7 H RDW Coeff of Romulo 17.1 H Plt Count 182 MPV 10.0 Immature Gran % (Auto) 1.600 H Neut % (Auto) 79.6 H Lymph % (Auto) 12.7 L Galax % (Auto) 4.6 Eos % (Auto) 0.9 Baso % (Auto) 0.6 Absolute Neuts (auto) 8.0 H Absolute Lymphs (auto) 1.27 Nucleated RBC % 0 Differential Comment SCANNED Polychromasia RARE Hypochromasia 1+ Anisocytosis 1+ Target Cells RARE ESR 23 H PT 14.7 INR 1.2 APTT 28.5 Sodium 140 Potassium 3.6 Chloride 108 H Carbon Dioxide 25.0 Anion Gap 7 BUN 13 Creatinine 0.84 Estim Creat Clear Calc 80.66 Est GFR (MDRD) Af Amer 116 Est GFR (MDRD) Non-Af 96 BUN/Creatinine Ratio 15.6 Glucose 132 H Calcium 8.8 C-React Prot Ext Range 5.20 H Procalcitonin 0.04 Radiography Diagnostic Testing: Clinical Impression(s) from Imaging Studies Brain CT 01/08/24 22:24 IMPRESSION: 1. Acute on chronic though, primarily chronic, subdural hematoma overlying the left cerebral convexity, containing a minimal amount of acute subdural blood. Small chronic right-sided subdural hematoma. 2. 2 mm of associated gexh-df-wuzzc midline shift. Nonstandard communication protocol initiated. Electronically Signed: Sushil Jones MD at 23:50 EST , ADDENDUM: 01/09/24 0001 IMPRESSION: 1. Acute on chronic though, primarily chronic, subdural hematoma overlying the left cerebral convexity, containing a minimal amount of acute subdural blood. Small chronic right-sided subdural hematoma. 2. 2 mm of associated aias-yq-klhby midline shift. Nonstandard communication protocol initiated. N.B. : The above Results were Read Back by Sushil Jones MD to Bashir Pompa DO, and understanding confirmed on 01/08/2024 23:54:53 (ET). Electronically Signed: Sushil Jones MD at 23:50 EST , Critical Care Time Critical Care Time: Yes Critical care time (excluding procedures): Discussing w/Patient &/or Family/Gamemaster, Discussing w/Consultants, Arranging Admission or Transfer and - (Critical care time of 33 minutes) Discharge Plan Triage Chief Complaint: Headache ED Provider: Andes,Bashir Dx/Rx/DC Orders Clinical Impression: Acute on chronic intracranial subdural hematoma, History of rectal cancer, Leukemia, Chronic anemia Prescriptions: No Action multivitamin,tx-minerals Tablet 1 tab PO DAILY ascorbic acid (vitamin C) [Vitamin C] 250 mg Tablet 250 mg PO BID acyclovir 400 mg tablet 400 mg PO BID dasatinib [Sprycel] 100 mg tablet 100 mg PO DAILY famotidine 20 mg tablet 20 mg PO DAILY Patient Comments: [NO ORIGINAL SIG] mirtazapine 7.5 mg tablet 7.5 mg PO DAILY Patient Comments: [NO ORIGINAL SIG] Primary Care Provider: Doc Fontaine Referrals: Doc Fontaine MD [Primary Care Provider] - Print Language: Kyrgyz Disposition Disposition: Acute Care Hospital Discharge Location: [facility] Discharge Date/Time: 01/09/24 02:13
[2024-01-08] MEDS: Metoclopramide 10 MG/2 ML Vial IV (23:49)
[2024-01-08] MEDS: DiphenhydrAMINE 50 MG/ML Syringe IV (23:49)
[2024-01-08] MEDS: Ketorolac 30 MG/ML Syringe IV (23:50)
[2024-01-09] VITALS (12 sets, daily range): BP systolic 129–156; BP diastolic 35–86; PULSE 71–98; RESP 16–21; TEMP 36.7; O2SAT 85–98
[2024-01-09 00:18] LABS: International Normalized Ratio 1.2; Partial Thromboplast Time 28.5 Seconds (24.1-36.2); Prothrombin Time (Protime)PT. 14.7 SECONDS (11.7-14.9)
== END 2024-01-09 02:13 | disposition short-term general hospital (02) ==
PROVIDERS: Emergency Provider Emergency Medicine; PCP Family Medicine; Visit Provider Emergency Medicine
DX: I62.01 Nontraumatic acute subdural hemorrhage (principal); C95.90 Leukemia, unspecified not having achieved remission; I62.03 Nontraumatic chronic subdural hemorrhage; D84.9 Immunodeficiency, unspecified; Z85.038 Personal history of other malignant neoplasm of large intestine; Z79.899 Other long term (current) drug therapy; R29.700 NIHSS score 0; D64.9 Anemia, unspecified
CPT/HCPCS: 70450; 80048; 84145; 85025; 85610; 85652; 85730; 86140; 96361; 96374; 96375; 96376; 99283; J7030; A4216; J2405

== ENCOUNTER → 2024-01-27 | Outpatient (CLI) | payer OTHER, SELFPAY ==
--- NOTE | 2024-01-27 12:26 | CT_ITS ---
STUDY: CT BRAIN WITHOUT CONTRAST REASON FOR EXAM: Male, 73 years old. Acute lymphoblastic leukemia, subdural hemorrhage with loss of co -- PRIOR SUBDURAL ON LEFT 01/08/24 RADIATION DOSAGE (If Supplied By Facility): CTDIvol = ( 44.99 ) mGy, DLP = ( 812.98 ) mGycm TECHNIQUE: Transaxial CT imaging of the brain was performed without administration of intravenous contrast material. Individualized dose optimization techniques were used for this CT. COMPARISON: Comparison is made with prior study dated January 08, 2024. FINDINGS: Normal soft tissue structures. Normal calvarium. There is mild cerebral atrophy with widening of the extra-axial spaces and ventricular dilatation. There is a small acute right subdural hematoma overlying the right frontoparietal occipital lobes. The maximum thickness is seen overlying the frontal lobe and measures 8.8 mm. There is also evidence of a small acute on chronic left-sided subdural hematoma overlying the left cerebral hemisphere with maximal thickness of 7.6 mm. Normal basal ganglia and thalami. Normal brainstem. Normal cerebellum. There is no intracranial hemorrhage. There are no findings of an acute ischemic infarction. Normal visualized paranasal sinuses. CT/Brain/Head without Contrast IMPRESSION: Acute right subdural myxoma as described. Acute on chronic left-sided subdural hematoma. Electronically Signed: Boone Pantoja MD at 12:52 EST ,
== END | disposition home or self-care (01) ==
LOC: CT 12:24
PROVIDERS: PCP Family Medicine
DX: S06.5XAA Traumatic subdural hemorrhage with loss of consciousness status unknown, initial encounter (principal); C91.00 Acute lymphoblastic leukemia not having achieved remission; X58.XXXA Exposure to other specified factors, initial encounter
CPT/HCPCS: 70450